=== PATIENT | female | born 1965 | race Caucasian/White ===

== ENCOUNTER 2019-04-08 13:28 | Inpatient (IN) | payer OTHER ==
[~2019-04-08] VITALS: Ht 160 cm; Wt 119.7 kg
[2019-04-08 13:35] VITALS: BP 93/58
[2019-04-08 14:41] LABS: ABSOLUTE NEUTROPHILS 5.9 thou/uL (1.4-8.2); EOSINOPHILS 0.6 % (0.0-3.0); HEMATOCRIT 42.4 % (37.0-47.0); HEMOGLOBIN 14.5 gm/dL (12.0-15.0); LYMPHOCYTES 14.3 % (24.0-44.0); MCH 33.9 pg (26.0-34.0); MCHC 34.2 g/dL (28.0-37.0); MCV 99.2 fL (80.0-100.0); MONOCYTES 6.9 % (1.0-8.0); PLATELET COUNT 230 thou/uL (150-400); POLYS 77.2 % (36.0-66.0); RBC 4.27 mil/uL (4.20-5.00); RDW 12.6 % (10.5-14.5); WBC 7.7 thou/uL (4.0-11.0)
[2019-04-08 14:54] LABS: ANION GAP 9 mmol/L (7-16); BUN 17 mg/dL (7-18); CALCIUM 8.9 mg/dL (8.5-10.1); CHLORIDE 99 mmol/L (98-107); CO2 28 mmol/L (21-32); CREATININE 1.4 mg/dL (0.6-1.0); GLUCOSE 143 mg/dL (74-106); POTASSIUM 3.2 mmol/L (3.5-5.1); SODIUM 136 mmol/L (136-145)
[2019-04-08 15:05] LABS: ALBUMIN 3.3 g/dL (3.4-5.0); SGOT 31 U/L (15-37); SGPT 58 U/L (30-65); TOTAL BILIRUBIN 0.5 mg/dL (<0.1-1.0); TOTAL PROTEIN 6.8 g/dL (6.4-8.2); TROPONIN-I <0.06 ng/mL (<0.06)
[2019-04-08 17:32] VITALS: BP 112/64
[2019-04-08 18:10] VITALS: BP 118/68
[2019-04-08 19:44] VITALS: BP 126/71
--- NOTE | 2019-04-08 20:34 | NUR ---
1940 PT ARRIVED FROM ED VIA STRETCHER IN STABLE CONDITION. PLACED ON TELEMETRY. WILL ADMIT PT TO FLOOR AND CARRY OUT ORDERS.
[2019-04-08] MEDS ORDERED: WOMEN'S DAILY1 EAC2 PO (22:58)
[2019-04-08] MEDS ORDERED: PRENATAL PO (22:59)
[2019-04-08] MEDS ORDERED: VITAMIN D5000 UNIT PO (23:03)
[2019-04-08] MEDS ORDERED: MAGOX 400400 MG PO (23:03)
[2019-04-08] MEDS ORDERED: CALCIUM500 MG PO (23:05)
[2019-04-08] MEDS ORDERED: TUMS PO (23:06)
[2019-04-08] MEDS ORDERED: ELIQUIS5 MG PO (23:06)
[2019-04-08] MEDS ORDERED: OMEPRAZOLE40 MG PO (23:06)
[2019-04-08] MEDS ORDERED: VESICARE10 M1 PO (23:07)
[2019-04-08] MEDS ORDERED: PRINIVIL20 MG PO (23:07)
[2019-04-08] MEDS ORDERED: SYNTHROID100 MC1 PO (23:07)
[2019-04-08] MEDS ORDERED: NORCO 7.5-3251 EACH PO (23:08)
[2019-04-08] MEDS ORDERED: HYDROCHLOROTH12.5 M1 PO (23:08)
[2019-04-08] MEDS ORDERED: VENTOLIN HFA 1818 GM INH (23:09)
[2019-04-08 23:25] VITALS: BP 117/64
--- NOTE | 2019-04-09 04:14 | NUR ---
PT RESTING IN BED SR ON MONITOR. REMAINS ON RA. PT HAS HAD RESTFUL NIGHT. ONLY C/O PAIN AND ASKED FOR PAIN MEDS ONCE SO FAR.
[2019-04-09 04:25] VITALS: BP 129/78
[2019-04-09 07:40] VITALS: BP 129/77
[2019-04-09] MEDS ORDERED: DOXYCYCLINE 10100 MG PO (09:05)
[2019-04-09] MEDS ORDERED: PREDNISONE 10 M10 MG PO (09:05)
[2019-04-09 10:57] VITALS: BP 129/77
--- NOTE | 2019-04-09 11:59 | NUR ---
PT'S assessment has done, pt is A&OX3, PT's VS and o2sat are stable, pt does not have SOB when pt does to bathroom, but pt has some coughing , pt starts IV ABT today, has called : hold discharge to home today, pt is relaxing with family at bedside now.
--- NOTE | 2019-04-09 13:30 | NUR ---
DISCHARGE PLANNING. ANTICIPATED DISCHARGE TO HOME TOMORROW. PATIENT REQUESTING NEUBLIZER FOR HOME. FACE SHEET FAXED TO [facility]. ABBIE TO RUN BENEFITS TO SEE IF PATIENT QUALIFIES FOR NEBULIZER. ABBIE TO NOTIFY CM. FOLLOWING.
--- NOTE | 2019-04-09 13:30 | NUR ---
Nutrition: Received consult for diet instructions. BMI is > 40 at 46.9 kg/m2 per 264.5# admit weight. Pt has been unavailable x 3 attempted occasions this date to offer education. She is on a regular diet, here w/ bronchitis. Hx: COPD, tobacco abuse, HTN. Will attempt return visit tomorrow, on 04/10.
--- NOTE | 2019-04-09 14:05 | NUR ---
INITIAL ASSESSMENT: Received consult for financial assistance. PEPITO reviewed chart and spoke with nursing and attending physician. Pt was admitted from home due to COPD/hypoxia. Pt was placed on O2 in the ER. Pt now off the O2 and does not qualify for home O2. Pt's sats remained above 90% at room air and with exercise. SW met with pt at bedside. Introduced role of SW. Pt is alert/orientated x 4. Pt reports she lives at home alone in a one-level home. Prior to admission, pt was independent with ADLs. Pt does have a cane. Pt has not been on O2 or having breathing treatments in the past. Pt asking fro a nebulizer for home use. Pt has a rescue inhaler, but has not had a nebulizer. Options discussed with pt on DME providers. No preference voiced. No hx of HH or SNF/Rehab placement. Pt's PCP is Dr. Torri Mckeon. Pt normally goes to [facility], but was near [facility] when she become short of air. Pulmonology consult ordered today. material planner to fax face sheet to [employer] for nebulizer. Anticipate discharge home tomorrow. PEPITO is following to assist as needed with discharge planning.
[2019-04-09 15:28] VITALS: BP 122/82
[2019-04-09 19:18] VITALS: BP 142/77
[2019-04-10 04:15] VITALS: BP 138/91
--- NOTE | 2019-04-10 04:45 | NUR ---
Pt. stated she slept better last night. Tolerating room air well with no respiratory distress. Refused nicotoine patch last night. Medicated for pain (headache) with good relief. Up ad zach in room with steady gait. Making progress towards care plan goals.
[2019-04-10 05:57] LABS: CALCIUM 9.4 mg/dL (8.5-10.1); CREATININE 0.8 mg/dL (0.6-1.0)
[2019-04-10 06:02] LABS: POTASSIUM 5.2 mmol/L (3.5-5.1)
[2019-04-10 07:40] VITALS: BP 148/98
[2019-04-10] MEDS ORDERED: BENAZEPRIL HCL20 MG PO (08:36)
[2019-04-10 08:45] VITALS: BP 148/98
[2019-04-10] MEDS ORDERED: NEBULIZER MISCELL (10:55)
[2019-04-10] MEDS ORDERED: IPRAT-ALBUT 0.5-3 ML PO (10:55)
--- NOTE | 2019-04-10 13:38 | NUR ---
DISCHARGE NOTE: SW reviewed chart and spoke with nursing and attending physician. Pt is medically stable for discharge home today. Discharge orders finalized. SW met with pt at bedside. Pt very anxious to discharge home and [facility] to [facility] with [facility] regarding [facility] assistance. PEPITO contacted [facility] dental sales representative, who met with pt prior to discharge. Pt states she does not need a nebulizer at this time. Pulm to start her on different inhaler medications. No additional SW needs identified at this time, but is available to assist should needs arise.
--- NOTE | 2019-04-10 13:45 | NUR ---
pt is A&OX3, PT 's vs and o2sat are stable, pt denies sob with activities, RN received order to D/C pt to home, RN has giving discharge teaching, pt understands well, pt was going home with her friend at 1230pm.
--- NOTE | 2019-04-10 13:46 | EKG ---
[place] [address] [facility] [place] [address] ELECTROCARDIOGRAM REPORT Name: AISHWARYA HAMM Room #: 352-P [facility] IN M.R.#: [id number] Admission: 04/08/19 Attend Phys: Bienvenido Carrero MD Discharge: 04/10/19 Date of : 63 Report #: [id number] THIS REPORT FOR: //name// [facility] ED Test Date: 2019-04-08 Test Time: 13:54:39 Pat Name: AISHWARYA HAMM Department: Room: [facility] Gender: F [place] Consultant: [facility] : 1965 Requested By: Harmony Avilez Order Number: [id number] MD: Mikel Mai Measurements Intervals [place] Rate: 88 P: 59 VT: 139 QRS: -28 QRSD: 99 T: 22 QT: 387 QTc: 469 Interpretive Statements Sinus rhythm Borderline left axis deviation No previous ECG available for comparison Electronically Signed On 04-10-2019 13:46:08 CDT by Mikel Mai [email or web address] <ELECTRONICALLY SIGNED> By: Mikel Mai MD, [facility] 04/10/19 1346 [id number] [id number] Mikel Mai MD, FACC /EPI
== END 2019-04-10 12:30 | disposition home or self-care (01) | DRG 189 ==
LOC: ER 13:28 → 3W 16:22 → EROBS 16:22 → 3W 18:10 → ENTRNSPT 04-10 12:21 → EDTRNSPTSTS 04-10 12:27 → 3W 04-10 12:30
PROVIDERS: Physician Assistant; ADMIT Hospitalist
DX: J96.01 Acute respiratory failure with hypoxia (principal); J44.0 Chronic obstructive pulmonary disease with (acute) lower respiratory infection; J44.1 Chronic obstructive pulmonary disease with (acute) exacerbation; J20.9 Acute bronchitis, unspecified; E03.9 Hypothyroidism, unspecified; F17.210 Nicotine dependence, cigarettes, uncomplicated; E87.6 Hypokalemia; J45.909 Unspecified asthma, uncomplicated; Z86.711 Personal history of pulmonary embolism; Z79.899 Other long term (current) drug therapy; Z86.718 Personal history of other venous thrombosis and embolism
CPT/HCPCS: 10080; 10879